=== PATIENT | male | born 1990 | race Caucasian/White ===

== ENCOUNTER 2017-01-30 09:29 | Emergency (ER) | payer OTHER ==
[~2017-01-30] VITALS: Ht 162.6 cm; Wt 50.5 kg
[~2017-01-30 09:29] MED LIST: FAMO-96 PO; ONDA-43 PO
[2017-01-30 09:34] VITALS: Ht 162.6 cm; Wt 50.5 kg
[2017-01-30] MEDS ORDERED: CLIN-73 PO (10:44)
[2017-01-30] MEDS ORDERED: ERYT1OIN6 RIGHT EYE (10:44)
--- NOTE | 2017-01-30 11:13 | ERD ---
ER Documentation Chief Complaint Date/Time DATE: 01/30/17 TIME: 11:10 Chief Complaint right eye swelling and pain for 2 days no recent injury HPI .26-year-old male comes in with right upper eyelid swelling and pain for 2 days. He describes as achy pain, he has not had any fevers or chills or trauma. He denies any blurred vision, diplopia. He denies eye discharge. ROS All systems reviewed and are negative except as per history of present illness. Medications Home Meds Active Scripts Erythromycin (Erythromycin Opth) 3.5 Gm Oint..gm., 1 APPLIC RIGHT EYE QID, #1 Prov:PHILIPP CHRISTIANSON PA-C 01/30/17 Clindamycin Hcl* (Clindamycin Hcl*) 300 Mg Capsule, 300 MG PO TID for 7 Days, CAP Prov:PHILIPP CHRISTIANSON PA-C 01/30/17 Ondansetron Hcl* (Zofran*) 4 Mg Tab, 4 MG PO Q4H Y for NAUSEA AND OR VOMITING for 3 Days, TAB Prov:JAXON CORMIER 10/31/16 Famotidine* (Pepcid*) 20 Mg Tablet, 20 MG PO BID for 7 Days, TAB Prov:JAXON CORMIER 10/31/16 Allergies Allergies: Coded Allergies: Penicillins (Verified Allergy, Unknown, 01/30/17) PMhx/Soc History of Surgery: Yes (CRANIOTOMY ) Anesthesia Reaction: No Hx Neurological Disorder: No Hx Respiratory Disorders: No Hx Cardiac Disorders: No Hx Psychiatric Problems: No Hx Miscellaneous Medical Probl: No Hx Alcohol Use: Yes Hx Substance Use: No Hx Tobacco Use: Yes Smoking Status: Current every day smoker Physical Exam Vitals Vital Signs Date Time Temp Pulse Resp B/P Pulse Ox O2 Delivery O2 Flow Rate FiO2 01/30/17 09:34 98.7 64 16 126/60 99 Physical Exam General: Well-developed, well-nourished. The patient appears in no acute distress. HEENT: Head is normocephalic, atraumatic. No scleral icterus. Neck: Supple. Nontender. Eye Exam: Visual Calderon: Intact in all four quadrants bilaterally Lac ducts/glands: No swelling Lids w/ evertion: Right upper eyelid is swollen, erythematous. No vesicles. Conj/De Young: Clear, negative Fluorescein/Julia's Anterior Chamber: Clear Retina exam: No obvious abnormality Lungs: Clear to auscultation. Normal air movement. Heart: Regular rate and rhythm. S1 and S2 are normal. No murmurs, gallops, or rubs. Abdomen: Nondistended. Extremities: No clubbing or cyanosis. Moving extremities x 4. No weakness. Neurologic: Alert and oriented 3. No focal deficits. Normal speech and gait. Skin: Normal turgor. No rash or lesions. Procedures/MDM 26-year-old male comes in with right upper eyelid infection, there is evidence of cellulitis, no signs of trauma, fracture, iritis, herpetic ophthalmicus, corneal ulcer, hyphema, hypopyon. Departure Diagnosis: Primary Impression: Cellulitis Condition: Good Patient Instructions: Stephanie-Orbital Cellulitis PHILIPP CHRISTIANSON PA-C Jan 30, 2017 11:13
== END 2017-01-30 10:53 | disposition home or self-care (01) ==
LOC: FTE 09:29
DX: H00.031 Abscess of right upper eyelid (principal); F17.210 Nicotine dependence, cigarettes, uncomplicated
CPT/HCPCS: 99284